=== PATIENT | female | born 1985 | race Two or more races ===

== ENCOUNTER → 2025-03-15 | Outpatient (CLI) | payer BC, SELFPAY ==
--- NOTE | 2025-03-15 12:31 | XR_ITS ---
Examination: Lumbar spine, 5 views Technique: Lumbar spine AP, lateral, coned lateral lower lumbar spine, bilateral obliques 5 views Exam date and time: March 15, 2025 12:49 p.m. INDICATIONS: Low back pain months. FINDINGS: Adequate [employer] lumbar vertebral bodies Advanced facet arthropathy at the lowest lumbar level No lumbar fracture No spondylolisthesis Mild disc narrowing L5-S1 IMPRESSION: No lumbar fracture Mild disc narrowing L5-S1
== END | disposition home or self-care (01) ==
PROVIDERS: PCP Student in an Organized Health Care Education/Training Program; Referring Provider Student in an Organized Health Care Education/Training Program; Visit Provider Student in an Organized Health Care Education/Training Program
DX: M48.07 Spinal stenosis, lumbosacral region (principal)
CPT/HCPCS: 72110